=== PATIENT | female | born 1965 | race Caucasian/White ===

== ENCOUNTER 2016-10-14 23:45 | Emergency (ER) | payer OTHER ==
[2016-10-15 00:22] LABS: BASOPHIL 0.3 % (0-2); EOSINOPHIL 2.7 % (0-5); HCT 37.9 % (37.0-47.0); LYMPHOCYTE 42.4 % (15-48); MCH 31.4 pg (25.0-31.0); MCHC 36.9 g/dL (32.0-36.0); MONOCYTE 6.1 % (0-12); MPV 9.5 fL (6.0-9.5); NEUTROPHIL 48.5 % (41-80); PLT 230 K/uL (150-400); RBC 4.46 M/uL (4.20-5.40); RDW 13.3 % (11.5-14.0); WBC 9.5 K/uL (4.0-10.5)
[2016-10-15 00:31] LABS: INR 1.06 (0.9-1.2); PROTHROMBIN TIME 13.4 SECONDS (11.7-14.0); PTT 27.4 SECONDS (23.2-31.4)
[2016-10-15 00:33] LABS: D-DIMER < 0.27 ug/mLFEU (0.00-0.41)
[2016-10-15 00:40] LABS: MYOGLOBIN 21 ng/mL (26-65); PRO-BNP 49 pg/mL (0-125); TROPONIN T < 0.010 ng/mL
[2016-10-15 00:41] LABS: BILIRUBIN - TOTAL 0.2 mg/dL (0.1-1.0); CREATININE 0.7 mg/dL (0.5-1.0); GLOBULIN (CALCULATION) 2.5 g/dL (2.2-4.2); MAGNESIUM 1.81 mg/dL (1.40-2.10); POTASSIUM 3.4 mmol/L (3.5-5.1); TOTAL PROTEIN 6.5 g/dL (6.4-8.3)
[2016-10-15 03:58] LABS: TROPONIN T < 0.010 ng/mL
== END 2016-10-15 04:40 | disposition home or self-care (01) ==
LOC: FER 23:45
PROVIDERS: Emergency Medicine Emergency Medical Services
DX: R07.9 Chest pain, unspecified (principal); R06.02 Shortness of breath; R00.0 Tachycardia, unspecified; E86.9 Volume depletion, unspecified; F17.210 Nicotine dependence, cigarettes, uncomplicated; Z87.19 Personal history of other diseases of the digestive system; Z88.5 Allergy status to narcotic agent; Z88.6 Allergy status to analgesic agent; Z91.040 Latex allergy status; Z98.61 Coronary angioplasty status
CPT/HCPCS: 36415; 71010; 80053; 82550; 82553; 83735; 83874; 83880; 84484; 85025; 85379; 85610; 85730; 93005; C9113; J1885; J2270; J2405; J2800